=== PATIENT | male | born 1945 | race Caucasian/White ===

== ENCOUNTER 2017-06-01 09:41 | Inpatient (IN) ==
[2017-06-01] MEDS ORDERED: methylPREDNISolone SOD SUC 125 MG/2 ML VIAL IV STA (09:58)
[2017-06-01] MEDS ORDERED: ALBUTEROL/IPRATROPIUM 3 ML NEB RESP TX STA (09:58)
[2017-06-01] MEDS ORDERED: methylPREDNISolone SOD SUC 125 MG/2 ML VIAL ONE (10:11)
[2017-06-01 10:46] LABS: Basophils % 0.2 % (0.0-0.8); Hematocrit 45.2 VOL% (42.0-52.0); Hemoglobin 14.9 GM/DL (14.0-18.0); Immature Granulocytes % 0.4 %; Immature Granulocytes Absolute 0.04 #; Lymphocytes # 0.3 10*3/uL (1.4-4.0); Lymphocytes % 3.4 % (21.2-54.2); Mean Corpuscular Hemoglobin 31 PG (27-34); Mean Corpuscular Volume 95.2 FL (87-102); Monocytes # 0.6 10*3/uL (0.11-0.8); Monocytes % 5.9 % (1.7-12.7); Neutrophils # 8.7 10*3/uL (1.4-7.4); Neutrophils % 90.1 % (38.7-73.9); Platelet Count 214 T/CUMM (130-400); Red Blood Count 4.75 MC/CUMM (3.8-5.5); Red Cell Distribution Width 13.5 % (9.3-17.3); White Blood Count 9.7 T/CUMM (4-12)
[2017-06-01 11:23] LABS: Alanine Aminotransferase 62 U/L (16-61); Albumin 3.4 G/DL (3.4-5.0); Alkaline Phosphatase 86 U/L (45-117); Aspartate Amino Transferase 78 U/L (0-37); Blood Urea Nitrogen 24 MG/DL (7-18); Calcium 9.3 MG/DL (8.5-10.1); Glucose 73 MG/DL (74-106); Osmolality,Calculated 260.9 MOS/KG (273-304); Potassium 5.1 MMOL/L (3.5-5.1); Sodium 129 MMOL/L (136-145); Total Protein 7.2 G/DL (6.4-8.3); Troponin I Only < 0.015 NG/ML (0.00-0.045)
[2017-06-01 11:35] LABS: Band Neutrophils 6 % (0-10); Hypochromasia 1+; Lymphocytes 6 % (20-55); Platelet Estimate Normal; Segmented Neutrophils 85 % (50-85); Total Cells Counted 100
[2017-06-01] MEDS ORDERED: HYDROmorphone 2 MG/1 ML VIAL IV PRN (11:41)
[2017-06-01] MEDS: ALBUTEROL/IPRATROPIUM 3 ML NEB RESP TX SCH ×4 (11:55→23:00)
[2017-06-01] MEDS ORDERED: SODIUM CHLORIDE 0.9% 1,000 ML IV SCH (12:00)
[2017-06-01] MEDS ORDERED: methylPREDNISolone SOD SUC 40 MG/1 ML VIAL IV SCH (12:00)
[2017-06-01] MEDS: ONDANSETRON 4 MG/2 ML VIAL IV PRN (16:41)
[2017-06-01] MEDS: methylPREDNISolone SOD SUC 40 MG/1 ML VIAL IM SCH (19:24)
[2017-06-01] MEDS ORDERED: cefTRIAXone 1,000 MG VIAL IV SCH (20:30)
[2017-06-01] MEDS: cefTRIAXone 1,000 MG in SYRINGE 1 EACH IV SCH (21:45)
[2017-06-01] MEDS: SODIUM CHLORIDE 0.9% 1,000 ML IV SCH (21:47)
[2017-06-01] MEDS: DOCUSATE SODIUM 100 MG CAPSULE PO SCH (21:48)
[2017-06-01] MEDS: ACETAMINOPHEN 325 MG TABLET PO PRN (21:55)
[2017-06-02] MEDS: ALBUTEROL/IPRATROPIUM 3 ML NEB RESP TX SCH ×6 (02:00→23:55)
[2017-06-02] MEDS: methylPREDNISolone SOD SUC 40 MG/1 ML VIAL IV SCH ×3 (05:17→20:53)
[2017-06-02 06:17] LABS: Hematocrit 39.1 VOL% (42.0-52.0); Hemoglobin 13.1 GM/DL (14.0-18.0); Immature Granulocytes % 0.4 %; Immature Granulocytes Absolute 0.03 #; Lymphocytes # 0.2 10*3/uL (1.4-4.0); Lymphocytes % 2.4 % (21.2-54.2); Mean Corpuscular HGB Conc 33.5 GM/DL (32-36); Mean Corpuscular Hemoglobin 32 PG (27-34); Mean Platelet Volume 10.1 FL (9.6-12.0); Monocytes # 0.5 10*3/uL (0.11-0.8); Monocytes % 6.4 % (1.7-12.7); Neutrophils # 7.1 10*3/uL (1.4-7.4); Neutrophils % 90.8 % (38.7-73.9); Platelet Count 206 T/CUMM (130-400); Red Blood Count 4.16 MC/CUMM (3.8-5.5); Red Cell Distribution Width 13.6 % (9.3-17.3); White Blood Count 7.9 T/CUMM (4-12)
[2017-06-02 06:43] LABS: Burr Cells Slight; Lymphocytes 5 % (20-55); Platelet Estimate Adequate; Segmented Neutrophils 91 % (50-85); Total Cells Counted 100
[2017-06-02 06:44] LABS: Bilirubin,Total 0.7 MG/DL (0.2-1.0); Calcium 8.7 MG/DL (8.5-10.1); Osmolality,Calculated 271.2 MOS/KG (273-304); Total Protein 5.8 G/DL (6.4-8.3)
[2017-06-02 06:51] LABS: Risk Ratio 1.73; Thyroid Stimulating Hormone 0.258 uIU/ml (0.358-3.74); VLDL CHOLESTEROL 12.2 MG/DL
[2017-06-02 07:21] LABS: Apearance,Urine CLEAR (Clear); Bilirubin,Urine Negative (Negative); Blood, Urine Negative (Negative); Glucose,Urine (UA) Negative (Negative); Hyaline Casts,Urine 1 /LPF (0-3); Ketones,Urine 5 mg/dL (Negative); Mucus,Urine Occasional /LPF (Occasional); Nitrite,Urine Negative (Negative); Protein,Urine Negative; RBC,Urine 1 /HPF (0-4); Urine Color Yellow (Yellow); Urine Specific Gravity 1.018 (1.001-1.035); Urine Urobilinogen < 2.0 EU/DL (0.2-1.0)
[2017-06-02] MEDS: methylPREDNISolone SOD SUC 40 MG/1 ML VIAL IM SCH (07:45)
[2017-06-02] MEDS: MEGESTROL 400 MG/10 ML UDCUP PO SCH (10:43)
[2017-06-02] MEDS: PANTOPRAZOLE 40 MG TABLET PO SCH (10:44)
[2017-06-02] MEDS: DOCUSATE SODIUM 100 MG CAPSULE PO SCH ×2 (10:44→20:52)
[2017-06-02] MEDS: SODIUM CHLORIDE 0.9% 1,000 ML IV SCH ×2 (10:44→20:55)
[2017-06-02] MEDS: ARFORMOTEROL 15 MCG/2 ML NEB RESP TX SCH ×2 (10:51→20:27)
[2017-06-02] MEDS: BUDESONIDE 0.5 MG/2 ML NEB RESP TX SCH ×2 (10:51→20:28)
[2017-06-02] MEDS: DORNASE ALFA 2.5 MG/2.5 ML VIAL RESP TX SCH ×2 (11:53→20:28)
[2017-06-02] MEDS ORDERED: ZINC OXIDE PASTE 113 GM TUBE TOP PRN (13:54)
[2017-06-02] MEDS ORDERED: SKIN HEALING OINT (AQUAPHOR) 50 GM TUBE TOP PRN (13:54)
[2017-06-02] MEDS: cefTRIAXone 1,000 MG in SYRINGE 1 EACH IV SCH (20:50)
[2017-06-03] MEDS: ALBUTEROL/IPRATROPIUM 3 ML NEB RESP TX SCH (04:21)
[2017-06-03] MEDS: methylPREDNISolone SOD SUC 40 MG/1 ML VIAL IV SCH ×3 (05:18→20:43)
[2017-06-03] MEDS ORDERED: BISACODYL 10 MG SUPP RECTAL PRN (06:59)
[2017-06-03] MEDS: BUDESONIDE 0.5 MG/2 ML NEB RESP TX SCH ×2 (08:53→19:57)
[2017-06-03] MEDS: DORNASE ALFA 2.5 MG/2.5 ML VIAL RESP TX SCH ×2 (08:53→19:57)
[2017-06-03] MEDS: ARFORMOTEROL 15 MCG/2 ML NEB RESP TX SCH ×2 (08:53→19:56)
[2017-06-03] MEDS: MEGESTROL 400 MG/10 ML UDCUP PO SCH (09:54)
[2017-06-03] MEDS: PANTOPRAZOLE 40 MG TABLET PO SCH (09:55)
[2017-06-03] MEDS: DOCUSATE SODIUM 100 MG CAPSULE PO SCH ×2 (09:55→20:48)
[2017-06-03] MEDS: MAGNESIUM HYDROXIDE SUSP 30 ML UDCUP PO PRN (18:08)
[2017-06-03] MEDS: cefTRIAXone 1,000 MG in SYRINGE 1 EACH IV SCH (20:44)
[2017-06-04] MEDS: methylPREDNISolone SOD SUC 40 MG/1 ML VIAL IV SCH ×3 (04:29→21:32)
[2017-06-04] MEDS: ARFORMOTEROL 15 MCG/2 ML NEB RESP TX SCH ×2 (06:59→20:23)
[2017-06-04] MEDS: BUDESONIDE 0.5 MG/2 ML NEB RESP TX SCH ×2 (06:59→20:23)
[2017-06-04] MEDS: DORNASE ALFA 2.5 MG/2.5 ML VIAL RESP TX SCH ×2 (07:09→20:33)
[2017-06-04] MEDS ORDERED: LEVOFLOXACIN INJ 500 MG in PREMIX 1 EACH IV SCH (09:00)
[2017-06-04] MEDS ORDERED: MAGNESIUM HYDROXIDE SUSP 30 ML UDCUP PO ONE (09:00)
[2017-06-04] MEDS: DOCUSATE SODIUM 100 MG CAPSULE PO SCH ×2 (10:37→21:32)
[2017-06-04] MEDS: MEGESTROL 400 MG/10 ML UDCUP PO SCH (10:38)
[2017-06-04] MEDS: PANTOPRAZOLE 40 MG TABLET PO SCH (10:38)
[2017-06-04] MEDS: CEFEPIME 1,000 MG in SYRINGE 1 EACH IV SCH (14:25)
[2017-06-04] MEDS ORDERED: MAGNESIUM HYDROXIDE SUSP 30 ML UDCUP PO PRN (21:00)
[2017-06-04] MEDS: MAGNESIUM HYDROXIDE SUSP 30 ML UDCUP PO PRN (21:32)
[2017-06-05] MEDS: CEFEPIME 1,000 MG in SYRINGE 1 EACH IV SCH ×2 (00:30→11:15)
[2017-06-05 05:51] LABS: Basophils % 0.1 % (0.0-0.8); Hemoglobin 12.5 GM/DL (14.0-18.0); Immature Granulocytes % 0.9 %; Lymphocytes # 0.1 10*3/uL (1.4-4.0); Lymphocytes % 1.2 % (21.2-54.2); Mean Corpuscular HGB Conc 32.9 GM/DL (32-36); Mean Corpuscular Hemoglobin 32 PG (27-34); Mean Corpuscular Volume 96.9 FL (87-102); Mean Platelet Volume 9.6 FL (9.6-12.0); Monocytes # 0.4 10*3/uL (0.11-0.8); Monocytes % 3.2 % (1.7-12.7); Neutrophils # 10.9 10*3/uL (1.4-7.4); Neutrophils % 94.6 % (38.7-73.9); Platelet Count 177 T/CUMM (130-400); Red Blood Count 3.92 MC/CUMM (3.8-5.5); Red Cell Distribution Width 13.2 % (9.3-17.3); White Blood Count 11.5 T/CUMM (4-12)
[2017-06-05] MEDS: methylPREDNISolone SOD SUC 40 MG/1 ML VIAL IV SCH ×3 (06:07→21:37)
[2017-06-05 06:12] LABS: Calcium 8.3 MG/DL (8.5-10.1); Osmolality,Calculated 267.4 MOS/KG (273-304); Potassium 4.9 MMOL/L (3.5-5.1)
[2017-06-05 06:57] LABS: Band Neutrophils 1 % (0-10); Lymphocytes 3 % (20-55); Segmented Neutrophils 93 % (50-85); Total Cells Counted 100
[2017-06-05 06:58] LABS: Hypochromasia 2+; Microcytosis 1+
[2017-06-05 06:59] LABS: Ovalocytes Slight; Platelet Estimate Adequate
[2017-06-05] MEDS: BUDESONIDE 0.5 MG/2 ML NEB RESP TX SCH ×2 (08:00→20:02)
[2017-06-05] MEDS: ARFORMOTEROL 15 MCG/2 ML NEB RESP TX SCH ×2 (08:00→20:02)
[2017-06-05] MEDS: DORNASE ALFA 2.5 MG/2.5 ML VIAL RESP TX SCH ×2 (08:05→20:02)
[2017-06-05] MEDS: DOCUSATE SODIUM 100 MG CAPSULE PO SCH ×2 (11:15→21:40)
[2017-06-05] MEDS: MEGESTROL 400 MG/10 ML UDCUP PO SCH (11:15)
[2017-06-05] MEDS: PANTOPRAZOLE 40 MG TABLET PO SCH (11:15)
[2017-06-05] MEDS: NICOTINE 14 MG/24 HR PATCH TRANSDERM SCH (12:55)
[2017-06-05] MEDS: ALBUTEROL/IPRATROPIUM 3 ML NEB RESP TX PRN (20:02)
[2017-06-06] MEDS: CEFEPIME 1,000 MG in SYRINGE 1 EACH IV SCH ×2 (00:47→12:57)
[2017-06-06] MEDS: ONDANSETRON 4 MG/2 ML VIAL IV PRN ×3 (02:34→21:01)
[2017-06-06] MEDS: ALBUTEROL/IPRATROPIUM 3 ML NEB RESP TX PRN (02:40)
[2017-06-06 05:45] LABS: Basophils % 0.1 % (0.0-0.8); Hematocrit 38.9 VOL% (42.0-52.0); Hemoglobin 12.8 GM/DL (14.0-18.0); Immature Granulocytes % 0.7 %; Immature Granulocytes Absolute 0.09 #; Lymphocytes # 0.1 10*3/uL (1.4-4.0); Mean Corpuscular HGB Conc 32.9 GM/DL (32-36); Mean Corpuscular Hemoglobin 32 PG (27-34); Mean Corpuscular Volume 96.3 FL (87-102); Mean Platelet Volume 9.7 FL (9.6-12.0); Monocytes # 0.5 10*3/uL (0.11-0.8); Monocytes % 3.8 % (1.7-12.7); Neutrophils # 11.5 10*3/uL (1.4-7.4); Neutrophils % 94.4 % (38.7-73.9); Platelet Count 186 T/CUMM (130-400); Red Blood Count 4.04 MC/CUMM (3.8-5.5); White Blood Count 12.1 T/CUMM (4-12)
[2017-06-06] MEDS: methylPREDNISolone SOD SUC 40 MG/1 ML VIAL IV SCH ×3 (05:55→20:55)
[2017-06-06 06:23] LABS: Calcium 8.8 MG/DL (8.5-10.1)
[2017-06-06 06:24] LABS: Osmolality,Calculated 265.5 MOS/KG (273-304); Potassium 5.5 MMOL/L (3.5-5.1)
[2017-06-06 06:33] LABS: Band Neutrophils 7 % (0-10); Segmented Neutrophils 89 % (50-85); Total Cells Counted 100
[2017-06-06 06:34] LABS: Anisocytosis 1+; Poikilocytosis 1+
[2017-06-06] MEDS: BUDESONIDE 0.5 MG/2 ML NEB RESP TX SCH ×2 (07:00→20:08)
[2017-06-06] MEDS: ARFORMOTEROL 15 MCG/2 ML NEB RESP TX SCH ×2 (07:00→20:08)
[2017-06-06] MEDS: PANTOPRAZOLE 40 MG TABLET PO SCH (09:58)
[2017-06-06] MEDS: MEGESTROL 400 MG/10 ML UDCUP PO SCH (09:58)
[2017-06-06] MEDS: DOCUSATE SODIUM 100 MG CAPSULE PO SCH (09:58)
[2017-06-06] MEDS: NICOTINE 14 MG/24 HR PATCH TRANSDERM SCH (09:59)
[2017-06-06] MEDS ORDERED: hydrALAZINE 25 MG TABLET PO PRN (11:51)
[2017-06-06] MEDS: ALBUTEROL/IPRATROPIUM 3 ML NEB RESP TX SCH ×2 (14:00→20:08)
[2017-06-06] MEDS: BACITRACIN OINT 0.9 GM PACK TOP SCH (19:15)
[2017-06-06] MEDS ORDERED: FUROSEMIDE 20 MG/2 ML VIAL IV ONE (19:34)
[2017-06-07] MEDS: ALBUTEROL/IPRATROPIUM 3 ML NEB RESP TX SCH ×4 (00:44→20:16)
[2017-06-07] MEDS: CEFEPIME 1,000 MG in SYRINGE 1 EACH IV SCH ×2 (00:50→12:18)
[2017-06-07 03:36] LABS: Blood Urea Nitrogen 20 MG/DL (7-18); Calcium 8.5 MG/DL (8.5-10.1); Glucose 132 MG/DL (74-106); Osmolality,Calculated 266.7 MOS/KG (273-304); Potassium 4.5 MMOL/L (3.5-5.1); Sodium 131 MMOL/L (136-145)
[2017-06-07] MEDS: methylPREDNISolone SOD SUC 40 MG/1 ML VIAL IV SCH ×3 (04:55→21:26)
[2017-06-07] MEDS: ARFORMOTEROL 15 MCG/2 ML NEB RESP TX SCH ×2 (08:34→20:16)
[2017-06-07] MEDS: BUDESONIDE 0.5 MG/2 ML NEB RESP TX SCH ×2 (08:34→20:16)
[2017-06-07] MEDS: PANTOPRAZOLE 40 MG TABLET PO SCH (09:00)
[2017-06-07] MEDS: NICOTINE 14 MG/24 HR PATCH TRANSDERM SCH (09:00)
[2017-06-07] MEDS ORDERED: FUROSEMIDE 20 MG/2 ML VIAL IV SCH (09:00)
[2017-06-07] MEDS: BACITRACIN OINT 0.9 GM PACK TOP SCH (09:01)
[2017-06-07] MEDS ORDERED: FUROSEMIDE 20 MG/2 ML VIAL IV STA (17:22)
[2017-06-07] MEDS: ACETAMINOPHEN 325 MG TABLET PO PRN (17:40)
[2017-06-08] MEDS: ALBUTEROL/IPRATROPIUM 3 ML NEB RESP TX SCH ×2 (00:46→07:25)
[2017-06-08] MEDS: CEFEPIME 1,000 MG in SYRINGE 1 EACH IV SCH (01:24)
[2017-06-08] MEDS: methylPREDNISolone SOD SUC 40 MG/1 ML VIAL IV SCH (04:26)
[2017-06-08 06:07] LABS: Apearance,Urine CLEAR (Clear); Bilirubin,Urine Negative (Negative); Blood, Urine Negative (Negative); Glucose,Urine (UA) Negative (Negative); Ketones,Urine Negative (Negative); Nitrite,Urine Negative (Negative); Protein,Urine Negative; RBC,Urine <1 /HPF (0-4); Urine Color Yellow (Yellow); Urine Urobilinogen < 2.0 EU/DL (0.2-1.0); WBC,Urine <1 /HPF (0-6)
[2017-06-08] MEDS: BUDESONIDE 0.5 MG/2 ML NEB RESP TX SCH (07:25)
[2017-06-08] MEDS: ARFORMOTEROL 15 MCG/2 ML NEB RESP TX SCH (07:25)
[2017-06-08] MEDS ORDERED: ONDANSETRON 4 MG TABLET PO PRN (07:35)
[2017-06-08 07:53] VITALS: BP 138/68
[2017-06-08] MEDS: NICOTINE 14 MG/24 HR PATCH TRANSDERM SCH (08:39)
[2017-06-08] MEDS ORDERED: FLUCONAZOLE 150 MG TABLET PO SCH (09:00)
[2017-06-08] MEDS: BACITRACIN OINT 0.9 GM PACK TOP SCH (10:03)
[2017-06-08] MEDS: PANTOPRAZOLE 40 MG TABLET PO SCH (10:03)
== END 2017-06-08 11:40 | disposition hospice, home (50) | DRG 190 ==
LOC: EDBD → EDUNIT# → N.ED 09:41 → N.EDINP 11:41 → N.2E 15:44
PROVIDERS: ADMIT Family Medicine; ATTEND Family Medicine